=== PATIENT | male | born 1950 | race Caucasian/White ===

== ENCOUNTER → 2021-12-10 | Day surgery (SDC) | payer OTHER, MEDICARE ==
[2021-12-10] MEDS: Polymyxin B/Trimethoprim 10 ML Bottle EYERT SCH ×4 (10:50→13:11)
[2021-12-10] MEDS: Brimonidine 0.2% Ophth Soln 5 ML Bottle EYERT SCH ×4 (10:54→13:10)
[2021-12-10] MEDS: Phenylephrine 2.5% Ophth Soln 2 ML Bot EYERT SCH ×6 (10:58→13:09)
[2021-12-10] MEDS: Tropicamide 1% Ophth Soln 15 ML Bottle EYERT SCH ×4 (11:02→11:36)
[2021-12-10] MEDS: Tetracaine HCl/PF 0.5% 4 ML Bottle EYEBOTH SCH ×5 (11:38→13:09)
[2021-12-10] MEDS: Lidocaine 1% PF 2 ML SDV INJECT SCH ×2 (12:18→13:09)
[2021-12-10] MEDS: Cefuroxime 10 MG/ML SYRINGE EYERT SCH ×2 (12:31→13:10)
[2021-12-10] MEDS: Pilocarpine 4% Ophth Soln 15 ML Bot EYERT SCH ×2 (12:32→13:11)
[2021-12-10 12:50] VITALS: BP 138/88; PULSE 69
== END ==
LOC: JD.SDS 10:33
PROVIDERS: ATTEND Ophthalmology
DX: E10.36 Type 1 diabetes mellitus with diabetic cataract (principal); H25.813 Combined forms of age-related cataract, bilateral; H34.8310 Tributary (branch) retinal vein occlusion, right eye, with macular edema; E10.3292 Type 1 diabetes mellitus with mild nonproliferative diabetic retinopathy without macular edema, left eye; H16.223 Keratoconjunctivitis sicca, not specified as Sjogren's, bilateral; H21.81 Floppy iris syndrome; H21.41 Pupillary membranes, right eye; E78.00 Pure hypercholesterolemia, unspecified; I10 Essential (primary) hypertension; Z98.890 Other specified postprocedural states; Z79.82 Long term (current) use of aspirin; Z79.899 Other long term (current) drug therapy; Z79.4 Long term (current) use of insulin
CPT/HCPCS: 66982; 82947; J0697; C1780

== ENCOUNTER 2022-01-07 07:31 | Day surgery (SDC) | payer OTHER, MEDICARE ==
[2022-01-07] MEDS: Polymyxin B/Trimethoprim 10 ML Bottle EYELF SCH ×3 (07:25→08:50)
[~2022-01-07 07:31] MED LIST: Cefuroxime 10 MG/ML SYRINGE EYELF SCH; Lidocaine 1% PF 2 ML SDV INJECT SCH; Pilocarpine 4% Ophth Soln 15 ML Bot EYELF SCH
[2022-01-07] MEDS: Brimonidine 0.2% Ophth Soln 5 ML Bottle EYELF SCH ×3 (07:32→08:50)
[2022-01-07] MEDS: Phenylephrine 2.5% Ophth Soln 2 ML Bot EYELF SCH ×5 (07:35→08:33)
[2022-01-07] MEDS: Tropicamide 1% Ophth Soln 15 ML Bottle EYELF SCH ×4 (07:42→08:11)
[2022-01-07] MEDS: Tetracaine HCl/PF 0.5% 4 ML Bottle EYEBOTH SCH ×4 (08:14→08:39)
[2022-01-07 09:09] VITALS: BP 127/75; PULSE 64
== END 2022-01-07 09:02 | disposition home or self-care (01) ==
LOC: JD.SDS 07:31
PROVIDERS: ATTEND Ophthalmology
DX: E10.36 Type 1 diabetes mellitus with diabetic cataract (principal); H25.812 Combined forms of age-related cataract, left eye; E10.321 Type 1 diabetes mellitus with mild nonproliferative diabetic retinopathy with macular edema; E10.3292 Type 1 diabetes mellitus with mild nonproliferative diabetic retinopathy without macular edema, left eye; Z96.1 Presence of intraocular lens; E78.00 Pure hypercholesterolemia, unspecified; I10 Essential (primary) hypertension; I25.10 Atherosclerotic heart disease of native coronary artery without angina pectoris; I25.2 Old myocardial infarction; E66.9 Obesity, unspecified; H54.7 Unspecified visual loss; K21.9 Gastro-esophageal reflux disease without esophagitis; Z68.30 Body mass index [BMI] 30.0-30.9, adult; Z95.5 Presence of coronary angioplasty implant and graft; M19.90 Unspecified osteoarthritis, unspecified site; Z98.890 Other specified postprocedural states; Z79.82 Long term (current) use of aspirin; Z79.899 Other long term (current) drug therapy
CPT/HCPCS: 66982; 82947; C1780; J0697

== ENCOUNTER 2023-08-28 14:13 | Emergency (ER) | payer BC, MEDICARE ==
[2023-08-28] MEDS ORDERED: Cyclobenzaprine 10 MG Tab PO ONE (14:45)
[2023-08-28] MEDS ORDERED: Ketorolac 60 MG/2 ML SDV IM ONE (14:45)
[2023-08-28 16:00] VITALS: BP 141/77; PULSE 71
== END 2023-08-28 15:45 | disposition home or self-care (01) ==
LOC: JD.ED 14:13
DX: M54.50 Low back pain, unspecified (principal); I10 Essential (primary) hypertension; E78.00 Pure hypercholesterolemia, unspecified; I25.10 Atherosclerotic heart disease of native coronary artery without angina pectoris; I25.2 Old myocardial infarction; E11.9 Type 2 diabetes mellitus without complications; Z79.82 Long term (current) use of aspirin; Z79.4 Long term (current) use of insulin
CPT/HCPCS: 96372; 99283; A9270; J1885

== ENCOUNTER 2023-08-31 07:17 | Emergency (ER) | payer BC, MEDICARE ==
[2023-08-31] MEDS ORDERED: Sodium Chloride 0.9% 10 ML Syringe FLUSH PRN ×2 (07:51→08:18)
[2023-08-31 07:59] LABS: BASOPHILS PERCENT AUTO 0.2 % (0.0-1.0); HEMATOCRIT 48.8 % (42.0-52.0); HEMOGLOBIN 16.3 gm/dl (14.0-18.0); IMMATURE GRAN ABSOLUTE AUTO 0.05 K/mm3 (0.00-0.05); IMMATURE GRAN PERCENT AUTO 0.5 % (0.0-0.4); LYMPHOCYTES ABSOLUTE AUTO 0.7 K/mm3 (1.0-4.8); LYMPHOCYTES PERCENT AUTO 6.4 % (24.0-44.0); MEAN CORPUSCULAR HEMOGLOBIN 32.4 pg (28.0-32.0); MEAN CORPUSCULAR HGB CONC 33.4 g/dl (32.0-36.0); MEAN PLATELET VOLUME 10.8 fl (9.4-12.4); MONOCYTES ABSOLUTE AUTO 0.9 K/mm3 (0.0-0.8); MONOCYTES PERCENT AUTO 8.3 % (0.0-8.0); NEUTROPHILS ABSOLUTE AUTO 9.2 K/mm3 (1.8-7.7); NEUTROPHILS PERCENT AUTO 84.6 % (41.0-71.0); PLATELET COUNT,PLT 127 K/mm3 (150-400); RED BLOOD CELL COUNT 5.03 M/mm3 (4.52-5.90); WHITE BLOOD CELL COUNT,WBC 10.92 K/mm3 (3.9-11.3)
[2023-08-31 08:07] LABS: A/G RATIO 0.7 (1-2); ALBUMIN 3.1 g/dl (3.4-5.0); ANION GAP 16.7 (5-15); BILIRUBIN TOTAL 11.5 mg/dL (0.2-1.0); BUN/CREATININE RATIO 29.2 (14-18); CALCIUM 9.5 mg/dL (8.5-10.1); CREATININE 1.3 mg/dL (0.7-1.3); EST CRCL DRUG DOSING (CG) 54.72 mL/min; MAGNESIUM 2.2 mg/dL (1.8-2.4)
[2023-08-31 08:09] LABS: POTASSIUM,K 3.7 mEq/L (3.5-5.1); PROTEIN TOTAL,TP 7.9 g/dl (6.4-8.2)
[2023-08-31] MEDS ORDERED: Iopamidol 612 MG/ML 100 ML Bottle IVPUSH ONE (08:18)
[2023-08-31 10:03] LABS: LACTIC ACID 0.5 mmol/L (0.4-2.0)
[2023-08-31 11:25] LABS: APPEARANCE,URINE CLEAR (Clear); BILIRUBIN,URINE 3+ (Negative); COLOR,URINE DARK YELLOW (Yellow); GLUCOSE,URINE 2+ (Negative); KETONES,URINE NEGATIVE (Negative); LEUKOCYTE ESTERASE,URINE NEGATIVE (Negative); NITRITE,URINE NEGATIVE (Negative); OCCULT BLOOD,URINE NEGATIVE (Negative); PH,URINE 5.5 (5.0-8.0); PROTEIN,URINE 1+ (Negative)
[2023-08-31 11:55] LABS: RBC,URINE 0-5 /hpf (0-5); WBC,URINE 0-5 /hpf (0-5)
[2023-08-31 11:56] LABS: BACTERIA,URINE FEW /hpf (FEW); EPITHELIAL CELLS,URINE 0-5 /hpf (0-5); MUCUS,URINE FEW /hpf (FEW)
[2023-08-31] MEDS ORDERED: Gadoxetate Disodium 10 ML SDV IV ONE (15:36)
[2023-08-31] MEDS ORDERED: Sodium Chloride 0.9% 10 ML Syringe FLUSH SCH (15:45)
[2023-08-31 17:50] VITALS: BP 147/89; PULSE 71
== END 2023-08-31 17:50 | disposition home or self-care (01) ==
LOC: JD.ED 07:17
DX: K80.10 Calculus of gallbladder with chronic cholecystitis without obstruction (principal); E80.6 Other disorders of bilirubin metabolism; K74.60 Unspecified cirrhosis of liver; R18.8 Other ascites; E78.00 Pure hypercholesterolemia, unspecified; I10 Essential (primary) hypertension; I45.2 Bifascicular block; K21.9 Gastro-esophageal reflux disease without esophagitis; E11.9 Type 2 diabetes mellitus without complications; E66.9 Obesity, unspecified; Z79.82 Long term (current) use of aspirin; Z79.4 Long term (current) use of insulin; Z79.899 Other long term (current) drug therapy; Z68.33 Body mass index [BMI] 33.0-33.9, adult
CPT/HCPCS: 36415; 71045; 74177; 74183; 76705; 80053; 81001; 83605; 83735; 85025; 87040; 87154; 93005; 99285; A9581; J3490; Q9967; 87077; 87186; 93010

== ENCOUNTER 2023-09-01 03:58 | Emergency (ER) | payer BC, MEDICARE ==
[2023-09-01 04:21] VITALS: PULSE 0
== END 2023-09-01 06:50 | disposition expired ==
LOC: JD.ED 03:58
DX: I46.9 Cardiac arrest, cause unspecified (principal); R78.81 Bacteremia; K83.1 Obstruction of bile duct; I25.10 Atherosclerotic heart disease of native coronary artery without angina pectoris; I10 Essential (primary) hypertension; I25.2 Old myocardial infarction; E78.00 Pure hypercholesterolemia, unspecified; K21.9 Gastro-esophageal reflux disease without esophagitis; E11.9 Type 2 diabetes mellitus without complications; M19.90 Unspecified osteoarthritis, unspecified site; E66.9 Obesity, unspecified; Z68.33 Body mass index [BMI] 33.0-33.9, adult; Z79.82 Long term (current) use of aspirin; Z79.4 Long term (current) use of insulin; Z79.899 Other long term (current) drug therapy
CPT/HCPCS: 99285